=== PATIENT | female | born 1995 | race American Indian/Alaskan Native ===

== ENCOUNTER 2018-03-31 17:52 | Emergency (ER) | payer OTHER ==
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
== END 2018-03-31 19:54 | disposition home or self-care (01) ==
LOC: ED 17:52
CPT/HCPCS: 99281

== ENCOUNTER 2021-07-03 10:25 | Emergency (ER) | payer MEDICAID ==
[2021-07-03 11:11] VITALS: BP 114/81
== END 2021-07-03 11:11 | disposition left against medical advice (07) ==
LOC: ED 10:25
DX: R10.9 Unspecified abdominal pain (principal); Z53.21 Procedure and treatment not carried out due to patient leaving prior to being seen by health care provider